=== PATIENT | male | born 1970 | race Caucasian/White ===

== ENCOUNTER 2020-08-27 10:31 | Emergency (ER) | payer OTHER ==
[2020-08-27] MEDS ORDERED: KETOROLAC TROMETHAMINE INJ/PF 30 MG/1 ML SDV IV ONE ×2 (11:39→19:29)
[2020-08-27] MEDS ORDERED: ONDANSETRON HCL INJ/PF 4 MG/2 ML SDV IV ONE (11:39)
[2020-08-27 11:45] LABS: HEMATOCRIT 39.5 % (37.9-51.0); MEAN CORPUSCULAR HEMOGLOBIN 33.4 pg (27.0-33.4); MEAN CORPUSCULAR HGB CONC 32.9 g/dL (32.0-36.0); MEAN CORPUSCULAR VOLUME 102 fl (80-97); PLATELET COUNT 174 10^3/uL (150-450); RED BLOOD COUNT 3.89 10^6/uL (4.35-5.55); RED CELL DISTRIBUTION WIDTH 13.4 % (11.5-14.0)
[2020-08-27 11:50] LABS: APPEARANCE,URINE CLEAR; BILIRUBIN,URINE NEGATIVE (NEGATIVE); COLOR,URINE YELLOW; GLUCOSE, URINE NEGATIVE (NEGATIVE); KETONES,URINE 80 mg/dL (NEGATIVE); LEUKOCYTE ESTERASE,URINE NEGATIVE (NEGATIVE); NITRITE,URINE NEGATIVE (NEGATIVE); PROTEIN,URINE 30 mg/dL (NEGATIVE); URINE SPECIFIC GRAVITY 1.021; UROBILINOGEN,URINE NEGATIVE mg/dL (<2.0)
[2020-08-27 12:00] LABS: ALBUMIN 4.6 g/dL (3.5-5.0); ALKALINE PHOSPHATASE 74 U/L (38-126); ANION GAP 8 (5-19); ASPARTATE AMINO TRANSFERASE 58 U/L (17-59); BILIRUBIN,TOTAL 1.2 mg/dL (0.2-1.3); BLOOD UREA NITROGEN 18 mg/dL (7-20); CALCIUM 9.6 mg/dL (8.4-10.2); CARBON DIOXIDE 26 mmol/L (22-30); CHLORIDE 103 mmol/L (98-107); GLUCOSE 99 mg/dL (75-110); POTASSIUM 4.5 mmol/L (3.6-5.0); TOTAL PROTEIN 6.9 g/dL (6.3-8.2)
[2020-08-27 12:23] LABS: ABSOLUTE LYMPHOCYTES# (MANUAL) 88.8 10^3/uL (0.5-4.7); ABSOLUTE MONOCYTES # (MANUAL) 4.3 10^3/uL (0.1-1.4); BASOPHILS % (MANUAL) 0 % (0-2); EOSINOPHILS % (MANUAL) 0 % (0-6); IMMATURE MONONUCLEAR% (MANUAL) 2 % (0); MONOCYTES % (MANUAL) 4 % (3-13); SEGMENTED NEUTROPHILS % (MAN) 11 % (42-78); TOTAL CELLS COUNTED 100
[2020-08-27 12:25] LABS: OVALOCYTES SLIGHT; PLATELET COMMENT ADEQUATE; SMUDGE CELLS PRESENT
[2020-08-27 12:26] LABS: LYMPHOCYTES % (MANUAL) 83 % (13-45)
--- NOTE | 2020-08-27 12:46 | RADIOLOGY REPORT (SQ) ---
EXAM DESCRIPTION: CT ABD/PELVIS NO ORAL OR IV IMAGES COMPLETED DATE/TIME: 08/27/2020 12:32 pm REASON FOR STUDY: R flank pain, hematuria COMPARISON: None. TECHNIQUE: CT scan of the abdomen and pelvis performed without intravenous or oral contrast. Images reviewed with lung, soft tissue, and bone windows. Reconstructed coronal and sagittal MPR images revi ewed. All images stored on PACS. All CT scanners at this facility use dose modulation, iterative reconstruction, and/or weight based d osing when appropriate to reduce radiation dose to as low as reasonably achievable (ALARA). [facility]: Dose Right [facility]: CareDose [facility]: Dose Right [facility]: Teradose 4D [facility]: Smart [place] RADIATION DOSE: CT Rad equipment meets quality standard of care and radiation dose reduction techniq ues were employed. CTDIvol: 3.9 mGy. DLP: 210 mGy-cm.mGy. LIMITATIONS: None. FINDINGS: LOWER CHEST: No significant findings. No nodules or infiltrates. NON-CONTRASTED LIVER, SPLEEN, ADRENALS: Evaluation limited by lack of IV contrast. No identified sign ificant masses. PANCREAS: No masses. No peripancreatic inflammatory changes. GALLBLADDER: No identified stones by CT criteria. No inflammatory changes to suggest cholecystitis. RIGHT KIDNEY AND URETER: No suspicious masses. Assessment limited by lack of IV contrast. No signif icant calcifications. No hydronephrosis or hydroureter. LEFT KIDNEY AND URETER: No suspicious masses. Assessment limited by lack of IV contrast. No signifi cant calcifications. No hydronephrosis or hydroureter. AORTA AND RETROPERITONEUM: No aneurysm. No retroperitoneal masses or adenopathy. BOWEL AND PERITONEAL CAVITY: No obvious masses or inflammatory changes. No free fluid. APPENDIX: Surgically absent. PELVIS, BLADDER, AND ABDOMINAL WALL:No abnormal masses. No free fluid. Bladder normal. BONES: No significant findings. OTHER: No other significant finding. IMPRESSION: NO SIGNIFICANT OR ACUTE PROCESS IN THE ABDOMEN OR PELVIS. COMMENT: Quality ID # [id number]: Final reports with documentation of one or more dose reduction techniques (e.g., Automated exposure control, adjustment of the mA and/or kV according to patient size, use of iterative reconstruction technique) TECHNICAL DOCUMENTATION: JOB ID: [id number] [employer]- All Rights Reserved Reading location - IP/workstation name: [email or web address]
--- NOTE | 2020-08-27 15:48 | ER Document Report ---
ED GI/ - General Mode of Arrival: Ambulatory Information source: Patient - Related Data Home Medications: thyroid med, viagra <JANET SANDERS - Last Filed: 08/27/20 15:43> <CARRIJOSE MIGUELJANIYA - Last Filed: 08/28/20 08:50> - General Chief Complaint: Flank Pain Stated Complaint: RIGHT FLANK PAIN Time Seen by Provider: 08/27/20 11:23 - HPI Notes: 08/27/20 15:43 Patient presents with right flank pain radiating around to his right groin present since last night. The pain occurred the first time about a week ago and lasted about a day and then resolved. He began having some pain yesterday. Today the pain intensified considerably. At one point the patient said he was on his hands and knees on the ground and could not move the pain was so intense. He had some nausea with it. He denied any vomiting. He had no diarrhea or constipation. He denies any melena or hematochezia. He denies any hematuria. He has no history of renal stone disease. He has no history of any chronic GI disease. He has had an appendectomy in the distant past. He has had no other abdominal surgery. The pain is not related to exertion or movement and is not relieved by rest. He describes it is constant aching and intense. Sometimes he describes it as searing. He denies any other recent illness symptoms. He is otherwise in his usual state of health. (JANET SANDERS) - Related Data Allergies/Adverse Reactions: No Known Allergies Allergy (Verified 08/27/20 19:02) Past Medical History - General Information source: Patient - Social History Smoking Status: Never Smoker Family History: Reviewed & Not Pertinent - Medical History Medical History: Other Past Surgical History: Reports: Hx Appendectomy <JANET SANDERS - Last Filed: 08/27/20 15:43> - Medical History Notes: Patient's past medical history as documented in the electronic health record is reviewed. (JANET SANDERS) Review of Systems <JANET SANDERS - Last Filed: 08/27/20 15:43> - Review of Systems Notes: All other systems are reviewed and are negative or noncontributory except as noted in the history of present illness. (JANET SANDERS) Physical Exam <JANET SANDERS - Last Filed: 08/27/20 15:43> - Vital signs Vitals: Temp Pulse Resp BP Pulse Ox 98.8 F 69 16 132/72 H 100 08/27/20 10:47 08/27/20 10:47 08/27/20 10:47 08/27/20 10:47 08/27/20 10:47 - Notes Notes: General: Slender, uncomfortable male in no acute physiologic distress. Vital signs and nursing documentation are reviewed. HEENT: Grossly unremarkable to inspection. Neck: Supple nontender no adenopathy. Chest: Lungs clear to auscultation all ace. Heart: Regular rate and rhythm no murmur. Abdomen: Flat, soft, active bowel sounds, mild right upper and right lower quadrant direct tenderness. No guarding, masses, or organomegaly. No rebound is noted. Extremities: Without clubbing cyanosis or edema. Skin: Warm moist good turgor no rashes. Neuro: Alert and oriented x3. No focal motor or sensory deficits noted. (JANET SANDERS) Course - Laboratory Results Result Diagrams: 08/27/20 11:21 08/27/20 11:21 <JANET SANDERS - Last Filed: 08/27/20 15:43> - Laboratory Results Result Diagrams: 08/27/20 11:21 08/27/20 11:21 Critical Laboratory Results Reviewed: Yes Attending or Supervising Physician who Reviewed Labs: JANET SANDERS - Radiology Results Critical Radiology Results Reviewed: No Critical Results <JANIYA HINTON - Last Filed: 08/28/20 08:50> - Re-evaluation Re-evalutation: 08/27/20 15:53 Patient received IV ketorolac for pain and some Zofran for nausea. His symptoms improved although he was still somewhat uncomfortable. His blood count was markedly abnormal (and he had warned me that it would be). His blood chemistries were nondiagnostic and his urinalysis showed just a few red blood cells per high-power field. Unenhanced CT of the abdomen and pelvis was carried out as a stone survey. This failed to reveal any evidence of stone disease. I had a lengthy discussion with the patient and his about whether or not to repeat the scan using IV and oral contrast to look for other sources of pathology. I tried to reach the patient's repeat chief in [place] and was able to do so after about [address] Mendez at [phone]. The hematology office will reach out to the patient to schedule his October appointment at an earlier date. Ultimately the patient decided to proceed with CT scan with IV and oral contrast. Care was turned over to Dr. Hinton at the end of my shift at 1600. My plan is to repeat his scan. If it is normal, the patient can be discharged to outpatient follow up. If any abnormalities are identified Dr. Hinton will deal with them as appropriate. (JANET SANDERS) 08/27/20 20:00 Care of this patient was turned over to me during the course of my shift. In short this patient complained of right flank pain and presented to the ED. He had a noncontrast CT scan which is unremarkable. At the time I took over the patient's care he was awaiting an oral and IV contrasted scan to further evaluate the abdomen and pelvis. Patient did eventually complain of a return of his pain, a second dose of Toradol was administered. I reviewed this patient's labs. 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 Oth erwise only a few red blood cells per high-power field on urinalysis. His second scan showed questionable bladder wall thickening, asked for correlation with cystitis. The patient has absolutely no symptoms of cystitis. I will send this urine for culture and he will be contacted if any bacteria should grow. Otherwise, on exam he remains tender but his abdomen is nonsurgical. I will write him a prescription for a short course of Toradol. He is to return to the ED with worsening. (JANIYA HINTON) - Vital Signs Vital signs: Temp Pulse Resp BP Pulse Ox 99.1 F 64 18 130/74 H 97 08/27/20 19:42 08/27/20 19:42 08/27/20 19:42 08/27/20 19:42 08/27/20 19:42 - Laboratory Results Laboratory Results Interpreted: 08/27/20 08/27/20 11:21 11:21 WBC 107.0 H* RBC 3.89 L Hgb 13.0 L MCV 102 H Seg Neuts % (Manual) 11 L Lymphocytes % (Manual) 83 H Immature Leukocytes % 2 H Abs Neuts (Manual) 11.8 H Abs Lymphs (Manual) 88.8 H Abs Monocytes (Manual) 4.3 H Urine Protein 30 H Urine Ketones 80 H Urine Blood SMALL H - Radiology Results Radiology Results Interpreted: 08/28/20 08:50 Abdomen/Pelvis CT 08/27/20 00:00 IMPRESSION: The study is normal except for questionable thickening of the bladder wall. Correlate for cystitis. Abdomen/Pelvis CT 08/27/20 12:13 IMPRESSION: NO SIGNIFICANT OR ACUTE PROCESS IN THE ABDOMEN OR PELVIS. (JANIYA HINTON) Discharge <JANET SANDERS - Last Filed: 08/27/20 15:43> <JANIYA HINTON - Last Filed: 08/28/20 08:50> - Discharge Clinical Impression: Right flank pain Condition: Stable Disposition: HOME, SELF-CARE Instructions: Flank Pain ([facility]), Toradol Injection ([facility]) Additional Instructions: Your contrasted CT scan showed some questionable bladder wall thickening, but no obvious other abnormalities. Your urinalysis showed only a few red blood cells, this has been sent for culture. You will be contacted if your urine grows any bacteria. Otherwise take Toradol as directed for severe pain. Please take this with food. Follow-up with your oncologist regarding your CLL. If you develop fevers, increased pain, or any other new or concerning symptoms, please return immediately to the emergency department for reevaluation. Prescriptions: Ketorolac Tromethamine [Toradol 10 mg Tablet] 10 mg PO Q8HP PRN #15 tablet PRN Reason:
--- NOTE | 2020-08-27 19:34 | RADIOLOGY REPORT (SQ) ---
EXAM DESCRIPTION: CT ABD/PELVIS WITH IV ORAL IMAGES COMPLETED DATE/TIME: 08/27/2020 6:20 pm REASON FOR STUDY: RUQ/R flank pain COMPARISON: CT renal stone 08/27/2020 TECHNIQUE: CT scan of the abdomen and pelvis performed using helical scanning technique with dynamic intravenous contrast injection. Oral contrast. Images reviewed with lung, soft tissue, and bone win dows. Reconstructed coronal and sagittal MPR images reviewed. Delayed images for evaluation of the ur inary system also acquired. All images stored on PACS. All CT scanners at this facility use dose modulation, iterative reconstruction, and/or weight based d osing when appropriate to reduce radiation dose to as low as reasonably achievable (ALARA). [facility]: Dose Right [facility]: CareDose [facility]: Dose Right [facility]: Teradose 4D [facility]: impok CONTRAST TYPE AND DOSE: contrast/concentration: Isovue 350.00 mmol/ml; Total Contrast Delivered: 83. 0 ml; Total Saline Delivered: 33.3 ml RENAL FUNCTION: BUN 18 creatinine 1.03 RADIATION DOSE: CT Rad equipment meets quality standard of care and radiation dose reduction techniq ues were employed. CTDIvol: 4.4 mGy. DLP: 462 mGy-cm.. LIMITATIONS: None. FINDINGS: LOWER CHEST: No significant findings. No nodules or infiltrates. LIVER: Normal size. No masses. No dilated ducts. SPLEEN: Normal size. No focal lesions. PANCREAS: No masses. No significant calcifications. No adjacent inflammation or peripancreatic fluid collections. Pancreatic duct not dilated. GALLBLADDER: No identified stones by CT criteria. No inflammatory changes to suggest cholecystitis. ADRENAL GLANDS: No significant masses or asymmetry. RIGHT KIDNEY AND URETER: No solid masses. No significant calcifications. No hydronephrosis or hyd roureter. LEFT KIDNEY AND URETER: No solid masses. No significant calcifications. No hydronephrosis or hydr oureter. AORTA AND VESSELS: No aneurysm. No dissection. Renal arteries, SMA, celiac without stenosis. RETROPERITONEUM: No retroperitoneal adenopathy, hemorrhage or masses. BOWEL AND PERITONEAL CAVITY: No masses or inflammatory changes. No free fluid or peritoneal masses. APPENDIX: Surgically absent. PELVIS: Questionable thickening of the wall of the urinary bladder. No free fluid in the pelvis. No pelvic mass. ABDOMINAL WALL: No masses. No hernias. BONES: No significant or acute findings. OTHER: No other significant finding. IMPRESSION: The study is normal except for questionable thickening of the bladder wall. Correlate f or cystitis. TECHNICAL DOCUMENTATION: JOB ID: [id number] Quality ID # 436: Final reports with documentation of one or more dose reduction techniques (e.g., Au tomated exposure control, adjustment of the mA and/or kV according to patient size, use of iterative reconstruction technique) 2010 [employer]- All Rights Reserved Reading location - IP/workstation name: [email or web address]
[2020-08-27 19:50] VITALS: BP 130/74
== END 2020-08-27 20:10 | disposition home or self-care (01) ==
LOC: ER 10:31
DX: R10.11 Right upper quadrant pain (principal); R10.31 Right lower quadrant pain; R11.0 Nausea; C91.10 Chronic lymphocytic leukemia of B-cell type not having achieved remission
CPT/HCPCS: 96376; 99285; 96374; 96375; 36415; 87086; 83690; 85025; 80053; 81001; 74176; 74177; J1885; J2405